=== PATIENT | female | born 1970 | race Caucasian/White ===

== ENCOUNTER 2021-07-14 12:14 | Inpatient (IN) ==
[2021-07-14 13:19] LABS: Basophils # 0.1 K/mcL (0.0-0.2); Basophils % 0.6 %; Eosinophils # 0.3 K/mcL (0.0-0.6); Eosinophils % 3.5 %; Hematocrit 41.2 % (35.3-44.9); Hemoglobin 13.4 g/dL (11.5-15.4); Immature Granulocytes % 0.2 % (0-4); Lymphocytes # 1.6 K/mcL (0.6-4.6); Lymphocytes % 18.3 %; Mean Corpuscular HGB Conc 32.5 g/dL (31.6-35.5); Mean Corpuscular Hemoglobin 32.8 pg (28.0-33.3); Mean Platelet Volume 9.6 fL (9.4-12.4); Monocytes # 0.3 K/mcL (0.0-1.3); Monocytes % 3.3 %; Neutrophils # 6.5 K/mcL (1.6-8.9); Platelet Count 309 K/mcL (140-400); Red Blood Count 4.08 M/mcL (3.82-4.97); Red Cell Distribution Width 11.9 % (11.5-14.5); Segmented Neutrophils % 74.1 %; White Blood Count 8.8 K/mcL (4.3-11.1)
[2021-07-14 13:29] LABS: Estimated Average Glucose 105 mg/dl; Hemoglobin A1C 5.3 %
[2021-07-14 13:34] LABS: Bilirubin,Urine Negative (Negative); Blood,Urine Negative (Negative); Clarity,Urine Clear (Clear); Color,Urine Yellow (Yellow); Glucose,Urine (UA) Normal (Normal); Hyaline Casts,Urine Few per lpf (None Seen); Ketones,Urine Negative (Negative); Leukocyte Esterase,Urine Negative (Negative); Mucus,Urine Moderate per lpf (None-Few); Nitrite,Urine Negative (Negative); PH,Urine 6.5 pH Units (5.0-8.0); Protein,Urine 30 mg/dL (Neg-Trace); Specific Gravity,Urine 1.024 (1.010-1.025); Squamous Epithelial Cell,Urine Few per hpf (None-Few); Urobilinogen,Urine Normal (Normal); WBC,Urine 0-3 per hpf (0-3)
[2021-07-14 13:36] LABS: Acetaminophen < 10 mcg/mL (10-20); BUN/Creatinine Ratio 14 (6-26); Blood Urea Nitrogen 14 mg/dL (6-20); Carbon Dioxide 30 mEq/L (23-29); Chloride 105 mEq/L (98-107); Chol/HDL Ratio 3.4 (0-4.9); Cholesterol 175 mg/dL (< 200); Ethanol < 10 mg/dL (Less than 10); Glucose 89 mg/dL (70-105); HDL Cholesterol 51 mg/dL (40-59); LDL Cholesterol,Calculated 108 mg/dL (< 100); Osmolality,Calculated 290 (280-300); Potassium 4.2 mEq/L (3.5-5.1); Salicylate < 2.5 mg/dL (15.0-30.0); Sodium 140 mEq/L (136-145); Triglycerides 78 mg/dL (< 150); eGFR For African Americans > 60 (> 60); eGFR For Non-African Americans 59 (> 60)
[2021-07-14 13:49] LABS: Amphetamine Screen,Urine Positive ng/mL (Cutoff=1000); Barbiturate Screen,Urine Negative ng/mL (Cutoff=200); Benzodiazepines Screen,Urine Negative ng/mL (Cutoff=200); Cannabinoid Screen,Urine Negative ng/mL (Cutoff = 50); Cocaine Screen,Urine Negative ng/mL (Cutoff= 300); Opiate Screen,Urine Negative ng/mL (Cutoff=300); Phencyclidine Screen,Urine Negative ng/mL (Cutoff=25)
[2021-07-14 18:19] LABS: Influenza A PCR Negative (Negative); Influenza B PCR Negative (Negative); Resp. Syncytial Virus PCR Negative (Negative)
[2021-07-14 18:20] LABS: SARS-CoV-2 by PCR (In House) Negative (Negative)
[2021-07-14] MEDS ORDERED: Ibuprofen 400 MG TABLET PO ONE (18:30)
[2021-07-14] MEDS ORDERED: *HR* LORazepam 2 MG/ML VIAL IM PRN (18:36)
[2021-07-14] MEDS ORDERED: haloperidoL 5 MG TABLET PO PRN (18:36)
[2021-07-14] MEDS ORDERED: *HR* LORazepam 1 MG TABLET PO PRN (18:36)
[2021-07-14] MEDS ORDERED: Haloperidol Lactate 5 MG/ML VIAL IM PRN (18:36)
[2021-07-14] MEDS: Gabapentin 400 MG CAPSULE PO SCH (20:39)
[2021-07-14] MEDS: traZODone 50 MG TABLET PO PRN (20:39)
[2021-07-14] MEDS: hydrOXYzine pamoate 25 MG CAPSULE PO PRN (20:39)
[2021-07-14] MEDS: OLANZapine 5 MG TAB.RAPDIS PO SCH (20:39)
[2021-07-14] MEDS: Nicotine 21 MG PATCH.TD24 TD SCH (20:40)
[2021-07-15] MEDS: Gabapentin 400 MG CAPSULE PO SCH ×3 (08:38→21:00)
[2021-07-15] MEDS: Nicotine 21 MG PATCH.TD24 TD SCH (08:38)
[2021-07-15] MEDS: GUANFACINE HCL 2 MG PO SCH (08:45)
[2021-07-15] MEDS ORDERED: Gabapentin 400 MG CAPSULE PO SCH (15:00)
[2021-07-15] MEDS: Baclofen 10 MG TABLET PO SCH ×2 (16:33→20:59)
[2021-07-15] MEDS: Ziprasidone 20 MG CAPSULE PO SCH (16:33)
[2021-07-15] MEDS: hydrOXYzine pamoate 25 MG CAPSULE PO PRN (18:47)
[2021-07-15] MEDS: Ibuprofen 400 MG TABLET PO PRN (20:59)
[2021-07-15] MEDS: OLANZapine 5 MG TAB.RAPDIS PO SCH (20:59)
[2021-07-16] MEDS: Loratadine 10 MG TABLET PO SCH (10:15)
[2021-07-16] MEDS: Cholecalciferol (D-3) 1,000 UNIT (25MCG) TABLET PO SCH (10:15)
[2021-07-16] MEDS: Magnesium Oxide 400 MG TABLET PO SCH (10:15)
[2021-07-16] MEDS: Nicotine 21 MG PATCH.TD24 TD SCH (10:16)
[2021-07-16] MEDS: Baclofen 10 MG TABLET PO SCH ×3 (10:16→21:31)
[2021-07-16] MEDS: Gabapentin 400 MG CAPSULE PO SCH ×3 (10:16→21:31)
[2021-07-16] MEDS: valACYclovir 500 MG TABLET PO SCH (10:16)
[2021-07-16] MEDS: Ziprasidone 20 MG CAPSULE PO SCH ×2 (10:21→16:56)
[2021-07-16] MEDS: GUANFACINE HCL 2 MG PO SCH (10:36)
[2021-07-16] MEDS: lisinopriL 5 MG TABLET PO SCH (10:36)
[2021-07-16] MEDS ORDERED: Mag Hydrox/Al Hydrox/Simeth 30 ML UDC PO PRN (18:53)
[2021-07-16] MEDS: OLANZapine 5 MG TAB.RAPDIS PO SCH (21:31)
[2021-07-17 08:05] LABS: Albumin/Globulin Ratio 1.3 (1.1-2.2); Bilirubin,Direct 0.1 mg/dL (0.0-0.2); Bilirubin,Indirect 0.2 mg/dL (0.0-1.0); Bilirubin,Total 0.3 mg/dL (0.3-1.0)
[2021-07-17] MEDS: Baclofen 10 MG TABLET PO SCH (08:36)
[2021-07-17] MEDS: valACYclovir 500 MG TABLET PO SCH (08:37)
[2021-07-17] MEDS: Gabapentin 400 MG CAPSULE PO SCH (08:37)
[2021-07-17] MEDS: Magnesium Oxide 400 MG TABLET PO SCH (08:39)
[2021-07-17] MEDS: Loratadine 10 MG TABLET PO SCH (08:39)
[2021-07-17] MEDS: Nicotine 21 MG PATCH.TD24 TD SCH (08:40)
[2021-07-17] MEDS: Ziprasidone 20 MG CAPSULE PO SCH (08:40)
[2021-07-17] MEDS: lisinopriL 5 MG TABLET PO SCH (08:40)
[2021-07-17] MEDS: Cholecalciferol (D-3) 1,000 UNIT (25MCG) TABLET PO SCH (08:40)
[2021-07-17] MEDS: GUANFACINE HCL 2 MG PO SCH (08:56)
[2021-07-17] MEDS ORDERED: *HR* LORazepam 1 MG TABLET PO ONE (10:25)
[2021-07-17 12:33] LABS: BUN/Creatinine Ratio 27 (6-26); Blood Urea Nitrogen 15 mg/dL (6-20); Calcium 9.3 mg/dL (8.6-10.3); Carbon Dioxide 24 mEq/L (23-29); Chloride 105 mEq/L (98-107); Glucose 81 mg/dL (70-105); Osmolality,Calculated 286 (280-300); Potassium 4.2 mEq/L (3.5-5.1); Sodium 138 mEq/L (136-145); eGFR For African Americans > 60 (> 60); eGFR For Non-African Americans > 60 (> 60)
[2021-07-17 17:51] LABS: Basophils % 0.5 %; Eosinophils # 0.1 K/mcL (0.0-0.6); Eosinophils % 1.1 %; Hematocrit 44.3 % (35.3-44.9); Hemoglobin 14.6 g/dL (11.5-15.4); Immature Granulocytes % 0.3 % (0-4); Lymphocytes # 1.4 K/mcL (0.6-4.6); Lymphocytes % 15.8 %; Mean Corpuscular Hemoglobin 32.5 pg (28.0-33.3); Mean Corpuscular Volume 98.7 fL (83.0-100.0); Mean Platelet Volume 9.5 fL (9.4-12.4); Monocytes # 0.4 K/mcL (0.0-1.3); Monocytes % 4.9 %; Neutrophils # 6.7 K/mcL (1.6-8.9); Platelet Count 264 K/mcL (140-400); Red Blood Count 4.49 M/mcL (3.82-4.97); Red Cell Distribution Width 11.8 % (11.5-14.5); Segmented Neutrophils % 77.4 %; White Blood Count 8.7 K/mcL (4.3-11.1)
[2021-07-18] MEDS: Nicotine 21 MG PATCH.TD24 TD SCH (08:50)
[2021-07-18] MEDS: Magnesium Oxide 400 MG TABLET PO SCH (08:51)
[2021-07-18] MEDS: Cholecalciferol (D-3) 1,000 UNIT (25MCG) TABLET PO SCH (08:51)
[2021-07-18] MEDS: valACYclovir 500 MG TABLET PO SCH (08:51)
[2021-07-18] MEDS: Loratadine 10 MG TABLET PO SCH (08:51)
[2021-07-18] MEDS: hydrOXYzine pamoate 25 MG CAPSULE PO PRN (11:40)
[2021-07-18 12:37] LABS: Bilirubin,Urine Negative (Negative); Blood,Urine Negative (Negative); Clarity,Urine Clear (Clear); Color,Urine Yellow (Yellow); Glucose,Urine (UA) Normal (Normal); Ketones,Urine Trace mg/dL (Negative); Leukocyte Esterase,Urine Negative (Negative); Nitrite,Urine Negative (Negative); PH,Urine 6.5 pH Units (5.0-8.0); Protein,Urine Trace mg/dL (Neg-Trace); Specific Gravity,Urine 1.024 (1.010-1.025); Urobilinogen,Urine Normal (Normal)
[2021-07-19] MEDS: valACYclovir 500 MG TABLET PO SCH (09:09)
[2021-07-19] MEDS: Cholecalciferol (D-3) 1,000 UNIT (25MCG) TABLET PO SCH (09:09)
[2021-07-19] MEDS: Magnesium Oxide 400 MG TABLET PO SCH (09:09)
[2021-07-19] MEDS: Loratadine 10 MG TABLET PO SCH (09:09)
[2021-07-19] MEDS: Nicotine 21 MG PATCH.TD24 TD SCH (09:10)
[2021-07-19] MEDS: hydrOXYzine pamoate 25 MG CAPSULE PO PRN (16:00)
[2021-07-19] MEDS: Ziprasidone 20 MG CAPSULE PO SCH (16:01)
[2021-07-20] MEDS: Nicotine 21 MG PATCH.TD24 TD SCH (08:45)
[2021-07-20] MEDS: valACYclovir 500 MG TABLET PO SCH (08:46)
[2021-07-20] MEDS: Ziprasidone 20 MG CAPSULE PO SCH ×2 (08:46→16:30)
[2021-07-20] MEDS: Cholecalciferol (D-3) 1,000 UNIT (25MCG) TABLET PO SCH (08:46)
[2021-07-20] MEDS: Magnesium Oxide 400 MG TABLET PO SCH (08:46)
[2021-07-20] MEDS: Loratadine 10 MG TABLET PO SCH (08:47)
[2021-07-20] MEDS: hydrOXYzine pamoate 25 MG CAPSULE PO PRN ×3 (08:49→18:52)
[2021-07-20] MEDS: Ibuprofen 400 MG TABLET PO PRN ×2 (10:02→16:30)
[2021-07-20 12:12] LABS: Chlamydia Trachomatis DNA Ur NOT DETECTED (Not Detect)
[2021-07-20] MEDS: traZODone 50 MG TABLET PO PRN (20:05)
[2021-07-21] MEDS: Nicotine 21 MG PATCH.TD24 TD SCH (07:57)
[2021-07-21] MEDS: valACYclovir 500 MG TABLET PO SCH (07:58)
[2021-07-21] MEDS: Ziprasidone 20 MG CAPSULE PO SCH (07:58)
[2021-07-21] MEDS: Loratadine 10 MG TABLET PO SCH (07:58)
[2021-07-21] MEDS: Magnesium Oxide 400 MG TABLET PO SCH (07:58)
[2021-07-21] MEDS: Cholecalciferol (D-3) 1,000 UNIT (25MCG) TABLET PO SCH (07:58)
[2021-07-21] MEDS: Ibuprofen 400 MG TABLET PO PRN (07:59)
[2021-07-21 08:03] VITALS: BP 86/58; PULSE 104; TEMP 97.8; O2SAT 96
[2021-07-21] MEDS: hydrOXYzine pamoate 25 MG CAPSULE PO PRN (10:33)
== END 2021-07-21 10:55 | disposition home or self-care (01) | DRG 751 ==
LOC: 1ANU 12:14 → EMEROOARM 12:14 → 1ANU 20:27
PROVIDERS: ADMIT Psychiatry & Neurology Forensic Psychiatry; ATTEND Psychiatry & Neurology Forensic Psychiatry